=== PATIENT | male | born 1990 | race Caucasian/White ===

== ENCOUNTER 2019-07-29 | Emergency (ER) | payer OTHER ==
[~2019-07-29] VITALS: Ht 167.6 cm; Wt 79.4 kg
[2019-07-29] VITALS: BP 157/78
--- NOTE | 2019-07-29 | NUR ---
PT TAKEN TO CHAIR B
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
--- NOTE | 2019-07-29 00:05 | NUR ---
DR. VERDE EVALUTING PT
--- NOTE | 2019-07-29 00:28 | NUR ---
PT TAKEN TO RAD VIA WHEELCHAIR
--- NOTE | 2019-07-29 00:42 | NUR ---
HR DECREASED TO 128BPM. ERMD MADE AWARE.
[2019-07-29 00:53] VITALS: BP 157/78
--- NOTE | 2019-07-29 00:53 | NUR ---
Patient discharged with v/s stable. Written and verbal after care instructions given and explained. Patient verbalized understanding. Ambulatory with in custody. All questions addressed prior to discharge. Advised to follow up with PMD.
== END 2019-07-29 00:53 | disposition home or self-care (01) ==
LOC: MED
DX: Z04.1 Encounter for examination and observation following transport accident (principal); V89.2XXA Person injured in unspecified motor-vehicle accident, traffic, initial encounter; Y93.89 Activity, other specified; Y92.89 Other specified places as the place of occurrence of the external cause; Y99.8 Other external cause status
CPT/HCPCS: 71045; 99283